=== PATIENT | female | born 2000 | race Caucasian/White ===

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

== ENCOUNTER 2023-09-15 19:32 | Emergency (ER) | payer BC ==
[~2023-09-15] VITALS: Ht 162.6 cm; Wt 70.5 kg
[2023-09-15 21:13] VITALS: BP 120/80; PULSE 85; TEMP 98.7
== END 2023-09-15 21:05 | disposition home or self-care (01) ==
LOC: COL.ER 19:32
DX: S93.402A Sprain of unspecified ligament of left ankle, initial encounter (principal); Z87.891 Personal history of nicotine dependence; W10.9XXA Fall (on) (from) unspecified stairs and steps, initial encounter; X50.1XXA Overexertion from prolonged static or awkward postures, initial encounter